=== PATIENT | female | born 1965 | race Caucasian/White ===

== ENCOUNTER 2021-06-30 18:09 | Emergency (ER) | payer MEDICARE ==
[~2021-06-30 18:09] MED LIST: ALDACTONE25 MG PO; EFFEXOR XR37.5 MG PO; LISINOPRIL20 MG PO; NIFEREX 150 MG150 MG PO; OMNICEF 300 MG300 MG PO; PREDNISONE 20 M20 MG PO; PROVENTIL HFA 61 INH INH; TRILEPTAL300 MG PO
[2021-06-30 19:14] LABS: HEMOGLOBIN 13.7 gm/dl (12.3-15.3); RED BLOOD COUNT 4.17 M/UL (4.00-5.10); WHITE BLOOD COUNT 5.7 K/UL (4.5-11.0)
[2021-06-30 19:39] LABS: BUN/CREATININE RATIO 13 (0-10)
== END 2021-07-01 02:02 | disposition home or self-care (01) ==
LOC: ER1 18:09
PROVIDERS: Physician Assistant Medical
DX: R06.02 Shortness of breath (principal); Z90.89 Acquired absence of other organs; Z20.822 Contact with and (suspected) exposure to COVID-19
CPT/HCPCS: 71045; 80053; 82550; 82553; 83874; 83880; 84439; 84443; 84484; 85025; 93005; 93971; 99285; Q9967; U0002